=== PATIENT | female | born 1985 | race African-American/Black ===

== ENCOUNTER 2024-05-04 12:45 | Emergency (ER) | payer SELFPAY ==
[~2024-05-04] VITALS: Ht 170.2 cm; Wt 75.0 kg
[2024-05-04 14:10] VITALS: BP 112/76; PULSE 102; RESP 16; TEMP 99.2; O2SAT 96
== END 2024-05-04 15:01 | disposition left against medical advice (07) ==
LOC: ER 12:45 → EDBD 12:45 → ER 15:01
DX: F41.0 Panic disorder [episodic paroxysmal anxiety] (principal); Z53.21 Procedure and treatment not carried out due to patient leaving prior to being seen by health care provider